=== PATIENT | female | born 1990 | race Caucasian/White ===

== ENCOUNTER 2017-07-02 13:12 | Emergency (ER) | payer MEDICAID | END 2017-07-02 16:58 | disposition home or self-care (01) | LOC: D.ER 13:12 | DX: L02.415 Cutaneous abscess of right lower limb (principal); I10 Essential (primary) hypertension; F17.200 Nicotine dependence, unspecified, uncomplicated ==

== ENCOUNTER 2017-07-06 13:15 | Emergency (ER) | payer MEDICAID | END 2017-07-06 16:12 | disposition home or self-care (01) | LOC: D.ER 13:15 | DX: L02.415 Cutaneous abscess of right lower limb (principal); I10 Essential (primary) hypertension ==

== ENCOUNTER 2018-08-19 16:08 | Emergency (ER) | payer MEDICAID ==
[~2018-08-19] VITALS: Ht 172.7 cm; Wt 125.0 kg
[2018-08-19 16:24] VITALS: Ht 172.7 cm; Wt 125.0 kg
[2018-08-19] MEDS ORDERED: CLEOCIN HCL300 MG PO (18:10)
[2018-08-19] MEDS ORDERED: MUPIROCIN22 GM TOPICAL (18:10)
[2018-08-19 18:27] VITALS: BP 144/87
== END 2018-08-19 18:28 | disposition home or self-care (01) ==
LOC: D.ER 16:08
DX: L02.31 Cutaneous abscess of buttock (principal)

== ENCOUNTER 2020-09-14 23:17 | Emergency (ER) | payer MEDICAID ==
[~2020-09-14] VITALS: Ht 172.7 cm; Wt 109.1 kg
[~2020-09-14 23:17] MED LIST: CLEOCIN HCL300 MG PO; MUPIROCIN22 GM TOPICAL
[2020-09-14 23:21] VITALS: BP 133/90; Ht 172.7 cm; Wt 109.1 kg
[2020-09-14 23:51] LABS: BASOPHILS 0.5 % (0-2); EOSINOPHILS 2.6 % (0-7); HEMATOCRIT 46.4 % (36.0-48.0); HEMOGLOBIN 15.7 g/dL (12-16); LYMPHOCYTES 33.5 % (15-50); MCH 29.7 pg (26.0-34.0); MCHC 33.8 g/dL (31.0-37.0); MCV 87.9 fL (80.0-100.0); MEAN PLATELET VOLUME 8.5 fL (7.4-10.4); MONOCYTES 6.3 % (2-11); NEUTROPHILS 57.1 % (40-80); PLATELET COUNT 242 10x3/uL (130-400); RBC 5.28 10x6/uL (4.00-5.40); RDW 14.9 % (11.5-14.5); WBC 10.3 10x3/uL (4.8-10.8)
[2020-09-14 23:58] LABS: BILIRUBIN NEGATIVE (NEGATIVE); HCG URINE NEGATIVE (NEGATIVE); KETONE NEGATIVE (NEGATIVE); NITRITE NEGATIVE (NEGATIVE); UROBILINOGEN NORMAL mg/dL (< 2)
[2020-09-14 23:59] LABS: UDS - AMPHET NEGATIVE QUAL (NEGATIVE); UDS - BARB NEGATIVE QUAL (NEGATIVE); UDS - BENZO NEGATIVE QUAL (NEGATIVE); UDS - COCAINE NEGATIVE QUAL (NEGATIVE); UDS - OPIATE NEGATIVE QUAL (NEGATIVE); UDS - PCP NEGATIVE QUAL (NEGATIVE); UDS - THC POSITIVE QUAL (NEGATIVE)
[2020-09-15] LABS: BACTERIA FEW HPF (NONE SEEN); SQUAMOUS EPITHELIAL 0-5 HPF (0-4); WHITE CELLS - URINE 0-5 HPF (0-4)
[2020-09-15 00:06] LABS: CALC OSMOLALITY 276 mosm/kg (275-300); CALCIUM 8.8 mg/dL (8.5-10.1); CARBON DIOXIDE 28.8 mmol/L (21.0-32.0); CHLORIDE - SERUM 103 mmol/L (98-107); CREATININE - SERUM 0.9 mg/dL (0.6-1.3); GLUCOSE 88 mg/dL (74-106); POTASSIUM - SERUM 3.8 mmol/L (3.5-5.1); SODIUM 140 mmol/L (136-145); UREA NITROGEN 10 mg/dL (7-18); eGFR NON AFRICAN AMERICAN 78 mL/min (90-120)
[2020-09-15 00:19] LABS: ALBUMIN 3.7 g/dL (3.4-5.0); ALKALINE PHOSPHATASE 67 U/L (30-120); ALT (SGPT) 36 U/L (10-68); MAGNESIUM - SERUM 1.9 mg/dL (1.8-2.4); PROTEIN - SERUM 8.3 g/dL (6.4-8.2); THYROID STIMULATING HORMONE 1.45 uIU/mL (0.36-3.74)
--- NOTE | 2020-09-15 01:14 | NUR ---
DR LANGE NOTIFIED AND REVIEWED PT's BEHAVIOR AND ASSESSMENT RESULTS. PT IS A LOW RISK PER DR LANGE. DR LANGE STATED TO GIVE RESOURCES TO PT AT TIME OF DISCHARGE. NO FURTHER ORDERS AT THIS TIME. RESOURCES REVIEWED WITH PT AND SHE VERBALIZED UNDERSTANDING.
== END 2020-09-15 01:47 | disposition home or self-care (01) ==
LOC: D.ER 23:17
PROVIDERS: Family Medicine
DX: F32.9 Major depressive disorder, single episode, unspecified (principal); I10 Essential (primary) hypertension; J45.909 Unspecified asthma, uncomplicated; Z72.0 Tobacco use; R45.851 Suicidal ideations